=== PATIENT | female | born 2000 | race Caucasian/White ===

== ENCOUNTER 2023-08-05 11:00 | Outpatient (RCR) | payer OTHER, SELFPAY ==
--- NOTE | 2023-07-22 09:38 | PC.NURSE ---
Brianne called and left a message with staff that she will not be able to attend PHP today as she has an urgent medical appointment that she is going to attend and stated she will be here on Wednesday.
--- NOTE | 2023-07-22 14:13 | HO.PHP ---
Client's case has been opened and reviewed in treatment team.
[2023-07-23 10:39] VITALS: BMI 19.5
[2023-07-23 10:40] VITALS: BP 105/80; PULSE 79; TEMP 37.5
--- NOTE | 2023-07-23 11:10 | PC.ADMIT ---
Patient is a 23 year old single female who was referred to PHP by her PCP d/t severe anxiety with panic attacks. Patient reports she has had anxiety for the past six months which is new for her and has increased within the past month. She is unable to identify a trigger to her anxiety. She reports she went to the emergency room yesterday d/t heart palpitations. Reports she has a pulse oximeter at home and reports her pulse was 180. Stated while in the ER her pulse was 120. She reports EKG showed sinus tachycardia. Reports being dx with anxiety and was given a prescription for Propranolol. Patient plans on picking up the prescription today. Patient is taking a CUCA from work d/t symptoms. 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 Patient currently is alert and oriented x4. Calm and cooperative. Presented with depressed mood and anxious affect. Denied SI. Patient given a copy of her safety plan if needed. Medications reconciled with patient and patient's pharmacy.
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
--- NOTE | 2023-07-28 08:38 | HO.PHP ---
Brianne contacted [facility] to disclose she had a migraine and won't be in attendance to program today. [facility] staff member assessed safety. Brianne diclosed no SI, plan or intent and stated she will be in program tomorrow.
--- NOTE | 2023-07-28 09:01 | HO.PHP ---
PHP staff member faxed over the referral for OP therapy and Med Management to [facility] for Brianne Hendrickson. PHP staff member is awaiting on the appointment dates and times.
--- NOTE | 2023-07-30 11:21 | HO.PHP ---
PHP staff member obtained appointment dates for OP therapy and med management for Brianne through [facility] from [facility]. Brianne's OP therapy intake appointment is scheduled for August 10, 2023 at 11 AM with Felicia Ricks at [address] [place] [address] . Brianne's med management appointment is scheduled for September 09, 2023 at 9 AM with Elin Yeung at [address] [place] [address] .
--- NOTE | 2023-08-02 16:17 | HO.PHP ---
PHP team was informed by [facility] Admin, Gabriella, that Brianne left a voicemail calling out of program due to having a doctor's appointment.
--- NOTE | 2023-08-02 16:19 | HO.PHP ---
[facility] staff followed up with Brianne who noted that she had medical concerns occurring that she had to address. Brianne reported no safety concerns and stated she will be in the program tomorrow.
--- NOTE | 2023-08-05 21:42 | P.PNPSP_ITS ---
Subjective Subjective Date of Service: 08/05/23 Reason For Visit: anxiety Interim History: Patient see for follow-up and is anticipating discharge at the end of the day. Since our last meeting she discussed the idea of starting sertraline and propranolol with her PCP who agreed this was a good idea, and ultimately was prescribed both. Patient shares that she just feels more comfortable being started on medication by her PCP who will be the one continuing her on it. She has picked up the script but hasn't started on the yet. Her PCP also gave her a short script for Ativan 0.5 mg which she has been taking at 1/2 tablet twice a day and has found this helpful. She reports having some ongoing GI issues. Her PCP will be ordering more labwork. There might be blood in my stools. They cant tell me what it is but 99% that it is either Inflammatory Bowel Disease or cancer . She says she is at risk although denies any family history of bowel cancers, no history of smoking, or other health issues. She is continued on BCP. She has not had any imaging or exploratory procedures ordered. She says she had been doing better until this started happening She reports her mood as not great, stressed . She presents as calm and otherwise appropriate. She denies any hopelessness or SI. Denies thoughts of harming self or others at this time. Denies any aggressive ideation or HI. Denies any paranoia or AH or VH. Sleep, appetite, energy stable. ? Mental Status Exam Mental Status Exam Narrative: Alert, oriented, in no acute distress. Calm, cooperative, but mildly guarded/defensive. No psychomotor agitation or neurovegetative retardation. Eye contact maintained. Mood anxious, dysthymic affect constricted, no evidence of lability. Speech normal with pressure or latency. Thought process linear, coherent, goal-directed. Thought content related to stressors, denies any helplessness, hopelessness or SI.? No aggressive ideation or HI. No paranoia or delusional content elicited. No evidence of psychosis. Insight and judgment fair but adequate. Diagnostics Vital Signs (24Hr): BMI result Body Mass Index 19.5 Assessment & Plan Assessment & Plan (1) LAURENCE (generalized anxiety disorder): Status: Acute Code(s): F41.1 - Generalized anxiety disorder (2) Mood disorder: Status: Acute Code(s): F39 - Unspecified mood [affective] disorder Assessment and Plan: Cyclothymia vs Pervasive Depressive Disorder r/o mood dysregulation r/t adhd or character/temperament Hx suggestive of DMDD in adolescence (3) Complex posttraumatic stress disorder: Status: Acute Code(s): F43.10 - Post-traumatic stress disorder, unspecified Plan Discharge from [facility] Continue regular medications Patient preferred medication plan be started by her PCP Will defer further medication management to outpatient provider *Safety plan reviewed *Discharge Diagnoses reviewed with patient, as well as treatment course, discharge plan (including medication regime, medication management, potential side effects) as well as treatment rationale were also revisited *If patient wishes, they are welcome to have their outpatient provider reach out to me for any further questions or clarification as pertains to this patient?s clinical care/treatment during their stay at [facility] (contact information provided to patient)? Patient educated on: diagnosis and medication risk/benefits Informed Consent: understands Reason for contiued partial hosp. stay Substantial Risk for: stable for discharge Certification I certify that partial hospital treatment is medically necessary due to the symptoms and problems resulting from the patient's mental illness and the failure to treat the patient at the partial hospital level of care would likely result in the patient requiring inpatient psychiatric care which could not be prevented at a less intensive level of care. Total time managing care of this patient today __30__ minutes. Discharge Plan Discharge Attending provider: Ora Salcedo Additional Instructions: Brianne's OP therapy intake appointment is scheduled for August 10, 2023 at 11 AM with Felicia Ricks at [address] [place] [address] . Brianne's med management appointment is scheduled for September 09, 2023 at 9 AM with Elin Yeung at [address] [place] [address] . Medications: Continued propranolol 10 mg Tablet 10 mg PO DAILY PRN (Reason: Anxiety) Rx Instructions: Take 30 minutes before an event. If first dose is ineffective take another dose. norethindrone (contraceptive) 0.35 mg tablet 0.35 mg PO DAILY sertraline 25 mg Tablet 25 mg PO DAILY lorazepam 0.5 mg Tablet 0.25 mg BID PRN (Reason: Anxiety) Stand Alone Forms: Patient Portal Discharge page Patient Education: Mood Disorders (DC) Print Language: [place]an
== END 2023-08-05 23:59 | disposition home or self-care (01) ==
LOC: HO.PHPA 11:00
PROVIDERS: Visit Provider Psychiatry & Neurology Psychiatry
DX: F41.1 Generalized anxiety disorder (principal); F43.10 Post-traumatic stress disorder, unspecified; F39 Unspecified mood [affective] disorder
CPT/HCPCS: 90791; 90853